=== PATIENT | male | born 1975 | race American Indian/Alaskan Native ===

== ENCOUNTER 2020-08-26 17:02 | Emergency (ER) | payer OTHER ==
[2020-08-26 17:57] VITALS: BP 172/102
--- NOTE | 2020-08-26 19:49 | Emergency Department Report ---
ED General Adult HPI - General Chief complaint: Urogenital-Male Stated complaint: ABSCESS ON PENIS Time Seen by Provider: 08/26/20 19:43 Source: patient Mode of arrival: Ambulatory Limitations: No Limitations - History of Present Illness Initial comments: 45 y/o male pt presents to ED w/ complaints of a painful swollen lesion to his left testicle starting 2 days ago. The affected area began draining today. No preceding fall, trauma, or injury. Patient experiencing more symptoms approximate 1 year ago, at which time he was treated with antibiotics, and his symptoms resolved. Patient engages in unprotected sexual intercourse with one partner. He does not have any concerns for STD exposure. Denies fever, chills, abdominal pain, pelvic pain, swollen lymph nodes, painful urination. Denies all other complaints at this time. - Related Data Previous Rx's Medication Instructions Recorded Last Taken Type Doxycycline Hyclate 100 mg PO BID 7 Days tablet. 08/26/20 Unknown Rx Allergies Allergy/AdvReac Type Severity Reaction Status Date / Time No Known Allergies Allergy Unverified 08/26/20 17:54 ED Review of Systems ROS: Stated complaint: ABSCESS ON PENIS Other details as noted in HPI Other: GENERAL: Negative for fever. CARDIOVASCULAR: Negative for chest pain. PULMONARY: Negative for shortness of breath. GASTROINTESTINAL: Negative for abdominal pain. MUSCULOSKELETAL: Negative for back pain. NEUROLOGICAL: Negative for headache. INTEGUMENTARY: Positive for painful swelling ED Past Medical Hx - Past Medical History Previous Medical History?: No - Surgical History Past Surgical History?: No - Medications Home Medications: Home Medications Medication Instructions Recorded Confirmed Last Taken Type Doxycycline Hyclate 100 mg PO BID 7 Days tablet. 08/26/20 Unknown Rx ED Physical Exam - General Limitations: No Limitations - Other Other exam information: General: Awake, appropriately interactive, no acute distress. Neck: Supple. Full range of motion intact. Cardiovascular: Normal peripheral perfusion. Pulmonary: No respiratory distress. Patient is speaking normally without use of accessory muscles. Skin: Male automation lead (RENATE Mejia) present. Painful, round, tender area noted to the inferior portion of the left testicle, approximately the size of a marble, with minimal fluctuance/purulent drainage. No regional lymphadenopathy. No proximal streaking erythema. Testicles otherwise appear nonedematous and nontender. No penile discharge. Neurological: No facial asymmetry. Speech is clear. Follows commands. Patient is alert and oriented. Musculoskeletal: Moves all four extremities spontaneously with normal range of motion. Psych: Cooperative. Appropriate mood and affect. ED Course Vital Signs 08/26/20 17:56 Temperature 98.4 F Pulse Rate 72 Respiratory 20 Rate Blood Pressure 172/102 O2 Sat by Pulse 96 Oximetry ED Medical Decision Making - Medical Decision Making Differential diagnosis including but not limited to: scrotal abscess, syphilis, chancroid, epididymitis, hydrocele, spermatocele, testicular torsion, tinea cruris, Sarabjit's gangrene Patient presents to the emergency department complaints of a painful lesion to his left testicle. He is afebrile, hemodynamically stable, able to urinate without difficulty. Pain and swelling is very localized; there is minimal purulent matter present. Clinical presentation is not consistent with testicular torsion. Pain is appropriately proportional to exam findings without evidence to suggest necrotizing soft tissue infection. Given the relatively small size of the lesion and its location, will proceed with conservative management to include warm compresses and oral antibiotics. Patient will be started on Doxycycline per current IDSA guidelines. It was explained to the patient that incision & drainage may be performed at a later time if symptoms fail to improve with conservative management, preferably by urology. Patient expressed understanding and is agreeable to plan of care. He has been provided with referral to urology for close outpatient follow-up. Patient expressed understanding is agreeable to plan of care. Strict return precautions provided. History, exam, diagnostic testing, and current condition do not suggest worrisome pathology to warrant further testing, continued ED treatment, admission, or surgical evaluation at this point. Given the low probability of a significant medical illness, it would be more likely to result in harm than benefit to perform further testing at this stage. Discussed findings, presumptive diagnosis, need for follow-up and specific signs/symptoms that should prompt immediate return to the emergency department. Instructions were explained in detail to the patient in addition to giving written discharge information. Patient expressed understanding and was given the opportunity to ask questions, all of which were satisfactorily answered prior to discharge home. Critical care attestation.: If time is entered above; I have spent that time in minutes in the direct care of this critically ill patient, excluding procedure time. ED Disposition Clinical Impression: Scrotal abscess Disposition: DC-01 TO HOME OR SELFCARE Is pt being admited?: No Does the pt Need Aspirin: No Condition: Stable Instructions: Skin Abscess, [id number] Additional Instructions: Take Doxycycline with food as directed. Increase your dietary intake of probiotic rich foods while taking this medication. Avoid prolonged sun exposure while taking this medication. Apply warm compresses to the affected area 3 times daily. The area may continue to drain on its own. Do not forcefully attempt to express drainage from the area. Follow-up with primary care provider and/or urology this week. Call tomorrow to schedule an appointment. See referral information below. Return to the emergency department immediately for new or worsening symptoms. Specifically, return to the emergency department immediately for fever, worsening pain, increased swelling, difficulty using the bathroom, or any other concerns. Prescriptions: Doxycycline Hyclate 100 mg PO BID 7 Days tablet.dr Referrals: JEANNIE CRUZ MD [Staff Physician] - 3-5 Days [facility] [Outside] - 3-5 Days [facility] [Outside] - 3-5 Days [facility] [Outside] - 3-5 Days [facility] [Provider Group] - 3-5 Days DOROTHY BURTON MD [Staff Physician] - 3-5 Days Time of Disposition: 19:51
== END 2020-08-26 20:24 | disposition home or self-care (01) ==
LOC: ED 17:02
DX: N49.2 Inflammatory disorders of scrotum (principal); Z79.899 Other long term (current) drug therapy
CPT/HCPCS: 99282